=== PATIENT | female | born 1960 | race Caucasian/White ===

== ENCOUNTER 2022-02-11 14:18 | Emergency (ER) | payer OTHER, BC ==
[2022-02-11] MEDS ORDERED: Ondansetron ODT 4 MG TAB ONE (14:37)
[2022-02-11] MEDS ORDERED: HYDROcodone/Acetaminophen 10/325 mg Tablet ONE (14:37)
== END 2022-02-11 15:51 | disposition home or self-care (01) ==
LOC: BURERS 14:18
DX: S02.2XXA Fracture of nasal bones, initial encounter for closed fracture (principal); S01.511A Laceration without foreign body of lip, initial encounter; W01.0XXA Fall on same level from slipping, tripping and stumbling without subsequent striking against object, initial encounter
CPT/HCPCS: 12011; 70450; 70486; 72125; Q0162